=== PATIENT | male | born 1980 | race African-American/Black ===

== ENCOUNTER 2018-04-29 09:44 | Emergency (ER) | payer SELFPAY ==
[~2018-04-29] VITALS: Ht 172.7 cm; Wt 83.9 kg
[2018-04-29 10:04] VITALS: BP 125/91
--- NOTE | 2018-04-29 11:55 | RAD ---
Clinical indications: Right hand swelling one day. Lump in upper arm. Numbness. Findings: Duplex sonography (including reddy scale evaluation and color flow and waveform spectral analysis) of the inferior aspect of the right internal jugular vein was performed. Duplex sonography (including reddy scale evaluation and color flow and waveform spectral analysis) of the right subclavian vein as far as it could be visualized prior to it's descent underneath the medial aspect of the clavicle was performed. Duplex sonography (including reddy scale evaluation and color flow and waveform spectral analysis) of the right axillary, brachial, basilic, cephalic, ulnar and radial veins was performed. Normal compressibility and augmentation of color Doppler flow after forearm compression is seen. Color-flow completely fills the lumen of these veins. Therefore, there are no sonographic findings of deep venous thrombosis within these veins. Impression: There are no sonographic findings of deep venous thrombosis within the veins discussed above of the right upper extremity. In the area of lump, no focal sonographic abnormality is seen. Electronically signed by: Cruz Muñoz MD (04/29/2018 11:52 AM) [facility]
--- NOTE | 2018-04-29 12:06 | PHYS DOC ---
Past Medical History Past Medical History: No Pertinent History Past Surgical History: No Surgical History Alcohol Use: Occasionally Drug Use: Marijuana Adult General Chief Complaint Chief Complaint: HAND PROBLEM HPI HPI Patient is a 37 year old male who presents with pain and swelling to the right hand. The patient states that he has an injury several weeks ago and still has a knot to his upper arm where the bruising occurred. He is concerned he could have developed a blood clot. Review of Systems Review of Systems Constitutional: Denies fever or chills [] Respiratory: Denies cough or shortness of breath [] Cardiovascular: No additional information not addressed in HPI [] GI: Denies abdominal pain, nausea, vomiting, bloody stools or diarrhea [] : Denies dysuria or hematuria [] Musculoskeletal: See history of present illness Integument: Denies rash or skin lesions [] Neurologic: Denies headache, focal weakness or sensory changes [] Endocrine: Denies polyuria or polydipsia [] All other systems were reviewed and found to be within normal limits, except as documented in this note. Allergies Allergies Allergies Uncoded Allergies Type Severity Reaction Last Updated Verified vITAMIN E OIL Allergy Unknown 04/29/18 Physical Exam Physical Exam Constitutional: Well developed, well nourished, no acute distress, non-toxic appearance. [] Cardiovascular:Heart rate regular rhythm, no murmur [] Lungs & Thorax: Bilateral breath sounds clear to auscultation [] Abdomen: Bowel sounds normal, soft, no tenderness, no masses, no pulsatile masses. [] Skin: Warm, dry, no erythema, no rash. [] Back: No tenderness, no CVA tenderness. [] Extremities:tenderness to right hand, no appreciable swelling noted, no cyanosis , no clubbing, ROM intact, pulses and sensation are intact Neurologic: Alert and oriented X 3, normal motor function, normal sensory function, no focal deficits noted. [] Psychologic: Affect normal, judgement normal, mood normal. [] Current Patient Data Vital Signs Vital Signs Date Time Temp Pulse Resp B/P (MAP) Pulse Ox O2 Delivery O2 Flow Rate FiO2 04/29/18 10:04 98.1 80 18 125/91 (102) 96 Room Air 98.1 EKG EKG [] Radiology/Procedures Radiology/Procedures []Signed PATIENT: MARYANNE ROQUE ACCOUNT: [id number] : 1980 LOCATION: ER AGE: 37 SEX: M EXAM STATUS: REG ER ORD. PHYSICIAN: GRAYSON MARLOW APRN REASON: swelling to hand, lump in upper arm PROCEDURE: VENOUS UPPER EXTREMITY RIGHT Clinical indications: Right hand swelling one day. Lump in upper arm. Numbness. Findings: Duplex sonography (including reddy scale evaluation and color flow and waveform spectral analysis) of the inferior aspect of the right internal jugular vein was performed. Duplex sonography (including reddy scale evaluation and color flow and waveform spectral analysis) of the right subclavian vein as far as it could be visualized prior to it's descent underneath the medial aspect of the clavicle was performed. Duplex sonography (including reddy scale evaluation and color flow and waveform spectral analysis) of the right axillary, brachial, basilic, cephalic, ulnar and radial veins was performed. Normal compressibility and augmentation of color Doppler flow after forearm compression is seen. Color-flow completely fills the lumen of these veins. Therefore, there are no sonographic findings of deep venous thrombosis within these veins. Impression: There are no sonographic findings of deep venous thrombosis within the veins discussed above of the right upper extremity. In the area of lump, no focal sonographic abnormality is seen. Electronically signed by: Kota Muñoz MD (04/29/2018 11:52 AM) [facility] DICTATED and SIGNED BY: KOTA MUÑOZ MD DATE: 04/29/18 1150 Course & Med Decision Making Course & Med Decision Making Pertinent Labs and Imaging studies reviewed. (See chart for details) [] Dragon Disclaimer Dragon Disclaimer This electronic medical record was generated, in whole or in part, using a voice recognition dictation system. Departure Departure Impression: Primary Impression: Hand pain Disposition: 01 HOME, SELF-CARE Condition: STABLE Referrals: UNKNOWN PCP NAME (PCP) Patient Instructions: Musculoskeletal Pain Additional Instructions: You may take ibuprofen or Tylenol for pain. Follow-up with her primary care provider in one week for a recheck if not improving or return to the emergency department if worsening. Ultrasound did not find a DVT on your scan. It may take a few weeks for the bruising to completely resolve. GRAYSON MARLOW APRN Apr 29, 2018 12:05
== END 2018-04-29 12:15 | disposition home or self-care (01) ==
LOC: ER 09:44
DX: M79.641 Pain in right hand (principal); M79.89 Other specified soft tissue disorders; Z91.018 Allergy to other foods
CPT/HCPCS: 93971; 99284

== ENCOUNTER 2021-01-08 09:57 | Emergency (ER) | payer SELFPAY ==
[~2021-01-08] VITALS: Ht 172.7 cm; Wt 81.0 kg
[2021-01-08 09:58] VITALS: BP 130/85
--- NOTE | 2021-01-08 10:59 | RAD ---
EXAM: Chest and left ribs, 5 views. HISTORY: Pain. Fall. COMPARISON: None. FINDINGS: A frontal view of the chest and 4 views of the left ribs are obtained. There is no infiltra te, pleural effusion or pneumothorax. The heart is normal in size. No displaced rib fracture is seen. IMPRESSION: No acute pulmonary or osseous finding. Electronically signed by: Gisele Rojas MD (01/08/2021 10:57 AM) [id number]
--- NOTE | 2021-01-08 11:21 | PHYS DOC ---
Past Medical History Past Medical History: No Pertinent History Past Surgical History: No Surgical History Smoking Status: Current Every Day Smoker Alcohol Use: Heavy Drug Use: Marijuana General Adult EDM: Chief Complaint: RIB PAIN HPI: HPI: Patient is a 40 year old male who was brought here by EMS from home for evaluation of left rib injury. Patient said he was walking down the stairs this morning at his house, when he lost his footing, fell, hit his left ribs onto the stair step. Patient denies any head or neck injury, patient denies any back pain or extremity pain. Patient is complaining of left-sided rib pain, worse with cough or taking a deep breaths. Patient denies any headache, no neck pain, no back pain, no lower extremity pain, no upper extremity pain. Review of Systems: Review of Systems: Constitutional: Denies fever or chills. [] Eyes: Denies change in visual acuity. [] HENT: Denies nasal congestion or sore throat. [] Respiratory: Denies cough or shortness of breath. [] Cardiovascular: Denies chest pain or edema. [] GI: Denies abdominal pain, nausea, vomiting, bloody stools or diarrhea. [] : Denies dysuria. [] Musculoskeletal: Denies back pain or joint pain. Positive for left side rib pain. Integument: Denies rash. [] Neurologic: Denies headache, focal weakness or sensory changes. [] Endocrine: Denies polyuria or polydipsia. [] Lymphatic: Denies swollen glands. [] Psychiatric: Denies depression or anxiety. [] Heart Score: C/O Chest Pain: N/A Risk Factors: Risk Factors: DM, Current or recent (<one month) smoker, HTN, HLP, family history of CAD, obesity. Risk Scores: Score 0 - 3: 2.5% MACE over next 6 weeks - Discharge Home Score 4 - 6: 20.3% MACE over next 6 weeks - Admit for Clinical Observation Score 7 - 10: 72.7% MACE over next 6 weeks - Early Invasive Strategies Current Medications: Current Medications Medications (Trade) Dose Ordered Sig/Keri Start Time Stop Time Status Last Admin Dose Admin Ketorolac Tromethamine (Toradol Im) 60 mg 1X ONCE 01/08/21 11:45 01/08/21 11:46 Allergies: Allergies: Allergies Uncoded Allergies Type Severity Reaction Last Updated Verified vITAMIN E OIL Allergy Unknown 04/29/18 Physical Exam: PE: Constitutional: Well developed, well nourished, no acute distress, non-toxic appearance. [] HENT: Normocephalic, atraumatic, bilateral external ears normal, oropharynx moist, no oral exudates, nose normal. [] Eyes: PERRLA, EOMI, conjunctiva normal, no discharge. [] Neck: Normal range of motion, no tenderness, supple, no stridor. [] Cardiovascular:Heart rate regular rhythm, no murmur, left side chest wall tender to palpation, no crepitus, no contusion noted. Lungs & Thorax: Bilateral breath sounds clear to auscultation [] Abdomen: Bowel sounds normal, soft, no tenderness, no masses, no pulsatile masses. [] Skin: Warm, dry, no erythema, no rash. [] Back: No tenderness, no CVA tenderness. [] Extremities: No tenderness, no cyanosis, no clubbing, ROM intact, no edema. [] Neurologic: Alert and oriented X 3, normal motor function, normal sensory function, no focal deficits noted. [] Psychologic: Affect normal, judgement normal, mood normal. [] Current Patient Data: Vital Signs: Vital Signs Date Time Temp Pulse Resp B/P (MAP) Pulse Ox O2 Delivery O2 Flow Rate FiO2 01/08/21 09:58 97.8 87 12 130/85 (102) Room Air 97.8 EKG: EKG: [] Radiology/Procedures: Radiology/Procedures: [facility] [address] [place] [address] IMAGING REPORT Signed PATIENT: MARYANNE ROQUE ACCOUNT: [id number] : 1980 LOCATION: ER AGE: 40 SEX: M EXAM STATUS: REG ER ORD. PHYSICIAN: DAVY TESFAYE DO REASON: left side chest wall pain after he fell earlier this am PROCEDURE: RIBS LEFT AND PA CHEST EXAM: Chest and left ribs, 5 views. HISTORY: Pain. Fall. COMPARISON: None. FINDINGS: A frontal view of the chest and 4 views of the left ribs are obtained. There is no infiltrate, pleural effusion or pneumothorax. The heart is normal in size. No displaced rib fracture is seen. IMPRESSION: No acute pulmonary or osseous finding. Electronically signed by: Gisele Rojas MD (01/08/2021 10:57 AM) [id number] DICTATED and SIGNED BY: GISELE ROJAS MD DATE: 01/08/21 [id number] Course & Med Decision Making: Course & Med Decision Making Pertinent Labs and Imaging studies reviewed. (See chart for details) Patient is a 40-year-old male who fell earlier today at home, injured his left ribs, x-ray did not show any fracture rib or pneumothorax. Patient will be discharged home with anti-inflammatory medication. Dragon Disclaimer: Dragon Disclaimer: This electronic medical record was generated, in whole or in part, using a voice recognition dictation system. Departure Departure Impression: Primary Impression: Contusion, chest wall Disposition: HOME / SELF CARE / HOMELESS Condition: STABLE Referrals: NO PCP (PCP) Please follow up with [facility] this week. [address], [address] [place] [address] Phone number: [phone] Patient Instructions: Chest Wall Pain Additional Instructions: Thank you for visiting our Emergency Department. We appreciate you trusting us with your care. If any additional problems come up don't hesitate to return to visit us. Please follow up with your primary care provider so they can plan additional care if needed and know about the problem that you had. If symptoms worsen come back to the Emergency Department. Any concerning symptoms that start such as chest pain, shortness of air, weakness or numbness on one side of the body, running high fevers or any other concerning symptoms return to the ER. Scripts Naproxen Sodium (ANAPROX DS) 550 Mg Tablet 1 TAB PO BID PRN for PAIN for 15 Days, #30 TAB 0 Refills Prov: DAVY TESFAYE DO 01/08/21 DAVY TESFAYE DO Jan 08, 2021 11:21
[2021-01-08] MEDS ORDERED: NAPR-682 PO (11:33)
[2021-01-08] MEDS ORDERED: KETOROLAC 60 MG/2 ML VIAL. IM ONE (11:45)
== END 2021-01-08 11:47 | disposition home or self-care (01) ==
LOC: ER 09:57
DX: S20.212A Contusion of left front wall of thorax, initial encounter (principal); F17.200 Nicotine dependence, unspecified, uncomplicated; Z88.8 Allergy status to other drugs, medicaments and biological substances; W18.09XA Striking against other object with subsequent fall, initial encounter; Y93.89 Activity, other specified; Y92.89 Other specified places as the place of occurrence of the external cause; Y99.8 Other external cause status
CPT/HCPCS: 71101; 96372; 99283; J1885